=== PATIENT | male | born 1975 | race African-American/Black ===

== ENCOUNTER 2021-08-31 11:08 | Observation (INO) ==
[2021-08-31] MEDS ORDERED: HYDROmorphone INJ 0.5 MG/0.5 ML SYR IV STA (11:21)
[2021-08-31] MEDS ORDERED: ONDANSETRON INJ 2 MG/ML 2 ML VIAL IV STA (11:21)
[2021-08-31] MEDS ORDERED: SODIUM CHLORIDE 0.9% 1000ML 1,000 ML IV STA (11:21)
--- NOTE | 2021-08-31 11:27 | Emergency Department Note ---
History of Present Illness General Chief complaint: Abdominal Pain Stated complaint: RUQ ABDOM PAIN Time Seen by Provider: 08/31/21 11:16 Source: patient History of Present Illness Provider complaint: Right upper quadrant abdominal pain Onset (ago): hour(s) Location: abdomen and right Radiation: non-radiation Pain Consistency: + constant Maximum Pain Intensity: 6 Quality: + dull Exacerbated By: + eating Associated symptoms: + fever/chills and + shortness of breath; no chest pain, no cough, no headaches or no nausea/vomiting This is a 45-year-old male sent over from the [facility] for evaluation of right upper quadrant pain and fever. His symptoms started this morning after eating. He states he had similar pain about 3 days ago after eating as well. He describes as a dull pain in the right upper quadrant without radiation. It is associated with a fever of 101 today. He does feel better after he was given Tylenol at the correctional facility. He denies any cough or cold symptoms, vomiting, chest pain, diarrhea, urinary symptoms or melena. He does state that he feels short of breath when the pain is bad. Home Medications Medication Instructions Recorded Confirmed Type cholecalciferol (vitamin D3) 25 25 mcg PO QAM 08/31/21 08/31/21 History mcg (1,000 unit) capsule (Vitamin D3) hydroxyzine pamoate 25 mg capsule 25 mg PO HS 08/31/21 08/31/21 History ketorolac 30 mg/mL injection 30 mg IM BID 08/31/21 08/31/21 History solution lactulose 10 gram/15 mL oral 30 ml PO QAM 08/31/21 08/31/21 History solution meloxicam 7.5 mg tablet 7.5 mg PO BID 08/31/21 08/31/21 History venlafaxine 37.5 mg 112.5 mg PO QAM 08/31/21 08/31/21 History capsule,extended release 24 hr Allergies Allergy/AdvReac Type Severity Reaction Status Date / Time No Known Allergies Allergy Unverified 08/31/21 12:38 Past Med/Surg History Medical History Anxiety PTSD (post-traumatic stress disorder) Social History Smoking Status: Never smoker Preferred Language: Ukrainian Current Living Situation: Other Current Living Situation Comment: [facility] facility Feels Safe at Home: Yes Review of Systems See HPI for pertinent positives & negatives. and A total of 10 systems reviewed and were otherwise negative Physical Exam Vital Signs Vital Signs - 24 hr 08/31/21 11:10 08/31/21 12:34 08/31/21 14:17 Temperature 37.4 C 37.2 C Temperature Source Oral Oral Pulse Rate 88 Pulse Rate [Left] 78 80 Pulse Rhythm [Left] Regular Pulse Strength [Left] Normal Respiratory Rate 18 16 20 Respiratory Effort / Characteristics Non-Labored Spontaneous Non-Labored Respiratory Depth Normal Normal Respiratory Pattern Regular Regular Blood Pressure 137/97 Blood Pressure [Left Arm] 141/74 H 146/103 H Blood Pressure Mean 110 Blood Pressure Mean [Left Arm] 96 117 Blood Pressure Position [Left Arm] Lying Pulse Oximetry 95 98 96 Oxygen Delivery Method Room Air Room Air Room Air Sepsis Recent Fever Within 48 Hours No Sepsis New/Unexplained Change in Mental Status No Sepsis Action Taken by Nursing No Action Required 08/31/21 14:27 Temperature Temperature Source Pulse Rate 80 Pulse Rate [Left] Pulse Rhythm [Left] Pulse Strength [Left] Respiratory Rate 16 Respiratory Effort / Characteristics Respiratory Depth Respiratory Pattern Blood Pressure 138/78 Blood Pressure [Left Arm] Blood Pressure Mean Blood Pressure Mean [Left Arm] Blood Pressure Position [Left Arm] Pulse Oximetry 98 Oxygen Delivery Method Room Air Sepsis Recent Fever Within 48 Hours Sepsis New/Unexplained Change in Mental Status Sepsis Action Taken by Nursing Constitutional: Vital signs reviewed. Eyes: Pupils are equal round reactive to light. Conjunctiva are noninjected. ENT: Pharynx is clear without erythema or exudate. Mucous membranes are moist. Neck supple without meningeal signs. Respiratory: Clear to auscultation bilaterally. Breath sounds are equal bilaterally. Cardiovascular: Regular rate and rhythm. No rubs or gallops. GI: Soft, nondistended with right upper quadrant tenderness. No guarding. Positive Patterson sign. Bowel sounds are present. Musculoskeletal: No peripheral edema. No lower extremity tenderness. Integumentary: No cyanosis. or jaundice. Neurological: The patient is awake and alert. No focal deficits. Psychiatric: Normal affect. Not anxious appearing. Course Administered Medications Discontinued Medications Hydromorphone HCl (Hydromorphone Inj 0.5 Mg/0.5 Ml Syr) 0.5 mg IV NOW STA Stop: 08/31/21 11:22 Last Admin: 08/31/21 11:45 Dose: 0.5 mg Documented by: [id number] Sodium Chloride (Nss 1000ml) 1,000 mls @ 999 mls/hr IV .Q1H1M STA Stop: 08/31/21 12:21 Last Infusion: 08/31/21 12:29 Dose: 0 mls/hr Documented by: [id number] Admin: 08/31/21 11:43 Dose: 999 mls/hr Documented by: [id number] Cefoxitin Sodium (Mefoxin) 2,000 mg in 60 mls @ 100 mls/hr IV NOW STA Stop: 08/31/21 13:33 Last Infusion: 08/31/21 13:47 Dose: 0 mls/hr Documented by: [id number] Admin: 08/31/21 13:21 Dose: 100 mls/hr Documented by: [id number] Piperacillin Sod/Tazobactam (Sod 3.375 gm/ Dextrose) 115 mls @ 230 mls/hr IV NOW ONE; Protocol Stop: 08/31/21 14:41 Last Admin: 08/31/21 14:55 Dose: 230 mls/hr Documented by: [id number] Ondansetron HCl (Ondansetron Inj 2 Mg/Ml 2 Ml Vial) 4 mg IV NOW STA Stop: 08/31/21 11:22 Last Admin: 08/31/21 11:44 Dose: 4 mg Documented by: [id number] Medical Decision Making Differential Diagnosis Cholecystitis, cholangitis, lower lobe pneumonia, bacteremia, pancreatitis, COVID-19 Medical Records Attestation: I reviewed the patient's medical records. I did perform a limited focused review of portions of the patient's old chart on the electronic medical record. The patient has had no recent pertinent visits to this hospital. Home Medications Current Medication List: was personally reviewed by me Laboratory Data Attestation: I reviewed the patient's lab results. Result diagrams: 08/31/21 11:36 08/31/21 11:36 Lab Results 08/31/21 08/31/21 08/31/21 Range/Units 11:36 11:36 11:36 WBC 15.69 H (4.8-10.8) K/uL RBC 4.86 (4.7-6.1) M/uL Hgb 14.4 (14.0-18.0) g/dL Hct 42.1 (42-52) % MCV 86.6 (80-100) fL MCH 29.6 (25-34) pg MCHC 34.2 (32-36) g/dL RDW Std Deviation 43.4 (36.4-46.3) fL RDW Coeff of Sumi 13.7 (11.5-14.5) % Plt Count 285 (130-400) K/uL MPV 9.9 (7.4-10.4) fL Immature Gran % (Auto) 0.3 % Neut % (Auto) 65.0 % Lymph % (Auto) 21.4 % [place] % (Auto) 11.4 % Eos % (Auto) 1.8 % Baso % (Auto) 0.1 % Neut # (Auto) 10.20 H (1.4-6.5) K/uL Lymph # (Auto) 3.35 (1.2-3.4) K/uL [place] # (Auto) 1.79 H (0.11-0.59) K/uL Eos # (Auto) 0.28 (0-0.5) K/uL Baso # (Auto) 0.02 (0-0.2) K/uL Immature Gran # (Auto) 0.05 H (0.00-0.02) K/uL Sodium 138 (136-145) mmol/L Potassium 3.9 (3.5-5.1) mmol/L Chloride 106 (98-107) mmol/L Carbon Dioxide 23 (21-32) mmol/L Anion Gap 9 (3-11) BUN 9 (6-23) mg/dl Creatinine 0.94 (0.6-1.4) mg/dl Est Cr Clr Drug Dosing 147.3 ml/min Est GFR ( Amer) 112.2 ml/min Est GFR (Non-Af Amer) 96.8 ml/min BUN/Creatinine Ratio 9.6 L (10-20) Glucose 87 (70-99(Fasting)) mg/dl Calcium 9.1 (8.5-10.1) mg/dl Total Bilirubin 1.1 H (0.2-1.0) mg/dl AST 29 (13-39) U/L ALT 24 (7-52) U/L Alkaline Phosphatase 103 (34-104) U/L Total Protein 7.2 (6.0-8.3) gm/dl Albumin 4.2 (3.4-5.0) gm/dl Globulin 3.0 (2.5-4.0) gm/dl Albumin/Globulin Ratio 1.4 (0.9-2) Lipase 12 (11-82) U/L Urine Color Urine Appearance (Clear) Urine pH (4.5-7.5) Ur Specific [place] (1.000-1.030) Urine Protein (Negative) Urine Glucose (UA) (Negative) Urine Ketones (Negative) Urine Blood (Negative) Urine Nitrite (Negative) Urine Bilirubin (Negative) Urine Urobilinogen (Negative) Ur Leukocyte Esterase (Negative) Urine WBC (Auto) (0-5) /hpf Urine RBC (Auto) (0-4) /hpf U Hyaline Cast (Auto) (0-5) /lpf U Epithel Cells (Auto) (0-5) /lpf Urine Bacteria (Auto) (Negative) SARS-CoV-2, RNA, NAAT NEGATIVE (NEGATIVE) 08/31/21 Range/Units 14:24 WBC (4.8-10.8) K/uL RBC (4.7-6.1) M/uL Hgb (14.0-18.0) g/dL Hct (42-52) % MCV (80-100) fL MCH (25-34) pg MCHC (32-36) g/dL RDW Std Deviation (36.4-46.3) fL RDW Coeff of Sumi (11.5-14.5) % Plt Count (130-400) K/uL MPV (7.4-10.4) fL Immature Gran % (Auto) % Neut % (Auto) % Lymph % (Auto) % [place] % (Auto) % Eos % (Auto) % Baso % (Auto) % Neut # (Auto) (1.4-6.5) K/uL Lymph # (Auto) (1.2-3.4) K/uL [place] # (Auto) (0.11-0.59) K/uL Eos # (Auto) (0-0.5) K/uL Baso # (Auto) (0-0.2) K/uL Immature Gran # (Auto) (0.00-0.02) K/uL Sodium (136-145) mmol/L Potassium (3.5-5.1) mmol/L Chloride (98-107) mmol/L Carbon Dioxide (21-32) mmol/L Anion Gap (3-11) BUN (6-23) mg/dl Creatinine (0.6-1.4) mg/dl Est Cr Clr Drug Dosing ml/min Est GFR ( Amer) ml/min Est GFR (Non-Af Amer) ml/min BUN/Creatinine Ratio (10-20) Glucose (70-99(Fasting)) mg/dl Calcium (8.5-10.1) mg/dl Total Bilirubin (0.2-1.0) mg/dl AST (13-39) U/L ALT (7-52) U/L Alkaline Phosphatase (34-104) U/L Total Protein (6.0-8.3) gm/dl Albumin (3.4-5.0) gm/dl Globulin (2.5-4.0) gm/dl Albumin/Globulin Ratio (0.9-2) Lipase (11-82) U/L Urine Color [place] Urine Appearance Clear (Clear) Urine pH 5.5 (4.5-7.5) Ur Specific [place] 1.025 (1.000-1.030) Urine Protein Trace H (Negative) Urine Glucose (UA) Negative (Negative) Urine Ketones Trace H (Negative) Urine Blood Negative (Negative) Urine Nitrite Negative (Negative) Urine Bilirubin Negative (Negative) Urine Urobilinogen Negative (Negative) Ur Leukocyte Esterase Negative (Negative) Urine WBC (Auto) 1-5 (0-5) /hpf Urine RBC (Auto) 0-4 (0-4) /hpf U Hyaline Cast (Auto) 1-5 (0-5) /lpf U Epithel Cells (Auto) 5-10 H (0-5) /lpf Urine Bacteria (Auto) Negative (Negative) SARS-CoV-2, RNA, NAAT (NEGATIVE) Imaging Data Radiologist's Impression: Chest X-Ray 08/31/21 11:21 XR chest 1V portable CLINICAL HISTORY: fever eval for pna TECHNIQUE: Single frontal radiograph of the chest was obtained. Comparison: None available at the time of this dictation. FINDINGS: No lines and tubes are seen. The cardiomediastinal silhouette is normal. The lungs are clear. No evidence of pleural effusion or pneumothorax. IMPRESSION: No acute abnormality and in particular no evidence of pneumonia. ACT 112: Negative or not required by law. Electronically signed by: Samuel Rodney M.D. 08/31/2021 11:41 AM Gallbladder Ultrasound 08/31/21 11:21 US gallbladder CLINICAL HISTORY: Right upper quadrant pain and fever. Evaluate for acute cholecystitis. COMPARISON STUDY: No previous studies for comparison. FINDINGS: No hepatic lesions are identified although sensitivity is diminished by suboptimal penetration. There is no biliary ductal dilatation. Common bile duct measures 6 mm in caliber. There are numerous gallstones within the gallb ladder. Sonographic Patterson sign was elicited. Gallbladder wall is thickened, measuring 4 mm in thickness. At most, there is mild gallbladder distention. Pancreas is obscured. No right hydronephrosis. IMPRESSION: Findings suggestive of acute cholecystitis. Cholelithiasis, g allbladder wall thickening and sonographic Patterson sign. ACT 112: Negative or not required by law. Electronically signed by: Juancarlos Pardo M.D. 08/31/2021 12:38 PM MDM Narrative I did evaluate the patient as noted above. The patient is presenting with right upper quadrant pain and fever up to 101. He had similar pain 2 days ago. I am concerned about cholecystitis. IV access was established. I did treat him with IV Dilaudid and Zofran as well as normal saline. I did place an order for continuous cardiac monitoring. The monitor showed normal sinus rhythm at a rate of 75 bpm. I did order and personally reviewed the images of the patient's chest x-ray as described above. There is no evidence of pneumonia. I did order and review the patient's blood work as noted in the electronic medical record. His white blood cell count is elevated at 15.6. He is not anemic. Electrolytes are unremarkable. LFTs are unremarkable other than total bili 1.1. Lipase is 12. Covid testing is negative. I did order an ultrasound of the right upper quadrant. I did review the images myself as well as the radiology report as described above. His ultrasound is consistent with cholecystitis. I did treat him with Mefoxin 2 g IV. I did inform him of his test results. I did discuss case with general surgery. He was taken to the OR for cholecystectomy. Impression & Plan Acute cholecystitis due to biliary calculus Discharge Plan Visit Data Chief Complaint: Abdominal Pain Stated Complaint: RUQ ABDOM PAIN ED Provider: Andrew Rojo Discharge Problem: Acute cholecystitis due to biliary calculus Patient Disposition: Admitted As Inpatient Discharge Instructions Interventions: ED Discharge Assessment Last Done: 08/31/21 14:27 Forms Stand Alone Forms: [facility] Prescriptions Prescriptions: No Action venlafaxine 37.5 mg Capsule,Extended Release 24hr 112.5 mg PO QAM RF: 0 meloxicam 7.5 mg Tablet 7.5 mg PO BID RF: 0 hydroxyzine pamoate 25 mg Capsule 25 mg PO HS RF: 0 cholecalciferol (vitamin D3) [Vitamin D3] 25 mcg (1,000 unit) Capsule 25 mcg PO QAM RF: 0 lactulose 10 gram/15 mL Solution 30 ml PO QAM RF: 0 ketorolac 30 mg/mL Solution 30 mg IM BID RF: 0 Referrals Referrals: PCP,NO [Physician] -
--- NOTE | 2021-08-31 11:43 | XRay Report ---
XR chest 1V portable CLINICAL HISTORY: fever eval for pna TECHNIQUE: Single frontal radiograph of the chest was obtained. Comparison: None available at the time of this dictation. FINDINGS: No lines and tubes are seen. The cardiomediastinal silhouette is normal. The lungs are clear. No evid ence of pleural effusion or pneumothorax. IMPRESSION: No acute abnormality and in particular no evidence of pneumonia. ACT 112: Negative or not required by law. Electronically signed by: Samuel Rodney M.D. 08/31/2021 11:41 AM
[2021-08-31 11:57] LABS: Basophils # (auto) 0.02 K/uL (0-0.2); Basophils % (auto) 0.1 %; Eosinophils # (auto) 0.28 K/uL (0-0.5); Eosinophils % (auto) 1.8 %; Hematocrit (blood only) 42.1 % (42-52); Hemoglobin 14.4 g/dL (14.0-18.0); Immature Granulocytes # (auto) 0.05 K/uL (0.00-0.02); Immature Granulocytes % (auto) 0.3 %; Lymphocytes # (auto) 3.35 K/uL (1.2-3.4); Lymphocytes % (auto) 21.4 %; Mean Corpuscular Hemoglobin 29.6 pg (25-34); Mean Corpuscular Hgb Conc 34.2 g/dL (32-36); Mean Corpuscular Volume 86.6 fL (80-100); Mean Platelet Volume 9.9 fL (7.4-10.4); Monocytes # (auto) 1.79 K/uL (0.11-0.59); Monocytes % (auto) 11.4 %; Platelet Count 285 K/uL (130-400); RDW Coefficient of Variation 13.7 % (11.5-14.5); RDW Standard Deviation 43.4 fL (36.4-46.3); Red Blood Count 4.86 M/uL (4.7-6.1); White Blood Count 15.69 K/uL (4.8-10.8)
[2021-08-31 12:17] LABS: Albumin Globulin Ratio 1.4 (0.9-2); Albumin Level 4.2 gm/dl (3.4-5.0); BUN Creatinine Ratio 9.6 (10-20); Bilirubin,Total 1.1 mg/dl (0.2-1.0); Calcium 9.1 mg/dl (8.5-10.1); Creatinine Clr Calc Pharmacy 147.3 ml/min; Est GFR (African American) 112.2 ml/min; Est GFR (Non-African American) 96.8 ml/min; Potassium 3.9 mmol/L (3.5-5.1); Total Protein 7.2 gm/dl (6.0-8.3)
--- NOTE | 2021-08-31 12:40 | Ultrasound Report ---
US gallbladder CLINICAL HISTORY: Right upper quadrant pain and fever. Evaluate for acute cholecystitis. COMPARISON STUDY: No previous studies for comparison. FINDINGS: No hepatic lesions are identified although sensitivity is diminished by suboptimal penetrat ion. There is no biliary ductal dilatation. Common bile duct measures 6 mm in caliber. There are nume tanja gallstones within the gallbladder. Sonographic Patterson sign was elicited. Gallbladder wall is thi ckened, measuring 4 mm in thickness. At most, there is mild gallbladder distention. Pancreas is obscu red. No right hydronephrosis. IMPRESSION: Findings suggestive of acute cholecystitis. Cholelithiasis, gallbladder wall thickening and sonographic Patterson sign. ACT 112: Negative or not required by law. Electronically signed by: Juancarlos Pardo M.D. 08/31/2021 12:38 PM
[2021-08-31] MEDS ORDERED: cefOXitin 2,000 MG/60 ML BAG IV STA (12:58)
--- NOTE | 2021-08-31 14:06 | Surgery Consultation ---
Date of Consultation August 31, 2021 Assessment & Plan (1) Acute cholecystitis due to biliary calculus: pt is a 45 year-old male who presents with 3 days history RUQ pain, IMP: acute cholecystitis, cholelithiasis, plan,,I recommend to do laparoscopic cholecystectomy, possible open or cholang iogram, D/W benefits, risks and alternatives of the surgery, the risks- infection, bleeding, injury other organs, may need ERCP, incisional hernia, DVT, [place], , pt understood, he agrees with the surgery, he signed informed consent, I answered all questions, pre-op antibiotic, History of Present Illness Reason for Consultation: acute cholecystitis Requesting Physician: Andrew Jones MD History of Present Illness History of Present Illness General Chief complaint: Abdominal Pain Stated complaint: RUQ ABDOM PAIN Time Seen by Provider: 08/31/21 11:16 Source: patient History of Present Illness Provider complaint: Right upper quadrant abdominal pain Onset (ago): hour(s) Location: abdomen and right Radiation: non-radiation Pain Consistency: + constant Maximum Pain Intensity: 6 Quality: + dull Exacerbated By: + eating Associated symptoms: + fever/chills and + shortness of breath; no chest pain, no cough, no headaches or no nausea/vomiting This is a 45-year-old male sent over from the [facility] for evaluation of right upper quadrant pain and fever. His symptoms started this morning after eating. He states he had similar pain about 3 days ago after eating as well. He describes as a dull pain in the right upper quadrant without radiation. It is associated with a fever of 101 today. He does feel better after he was given Tylenol at the correctional facility. He denies any cough or cold symptoms, vomiting, chest pain, diarrhea, urinary symptoms or melena. He does state that he feels short of breath when the pain is bad. I ( Eligio Patterson MD) got a call for consult acute cholecystitis with cholelithiasis, I reviewed pt's H/P, labs, U/S study with pt, pt is still have RUQ pain, Home Medications Medication Instructions Recorded Confirmed Type cholecalciferol (vitamin D3) 25 25 mcg PO QAM 08/31/21 08/31/21 History mcg (1,000 unit) capsule (Vitamin D3) hydroxyzine pamoate 25 mg capsule 25 mg PO HS 08/31/21 History ketorolac 30 mg/mL injection 30 mg IM BID 08/31/21 08/31/21 Hi story solution lactulose 10 gram/15 mL oral 30 ml PO QAM 08/31/21 08/31/21 Hi story solution meloxicam 7.5 mg tablet 7.5 mg PO BID 08/31/21 08/31/21 History venlafaxine 37.5 mg 112.5 mg PO QAM 08/31/21 08/31/21 History capsule,extended release 24 hr Allergies Allergy/AdvReac Type Severity Reaction Status Date / Time No Known Allergies Allergy Unverified 08/31/21 12:38 Past Med/Surg History Medical History Anxiety PTSD (post-traumatic stress disorder) Social History Smoking Status: Never smoker Preferred Language: Syriac Current Living Situation: Other Current Living Situation Comment: [facility] facility Feels Safe at Home: Yes Review of Systems See HPI for pertinent positives & negatives. and A total of 10 systems reviewed and were otherwise negative Allergies Allergy/AdvReac Type Severity Reaction Status Date / Time No Known Allergies Allergy Unverified 08/31/21 12:38 Home Medications Medication Instructions Recorded Confirmed Type cholecalciferol (vitamin D3) 25 25 mcg PO QAM 08/31/21 08/31/21 History mcg (1,000 unit) capsule (Vitamin D3) hydroxyzine pamoate 25 mg capsule 25 mg PO HS 08/31/21 08/31/21 History ketorolac 30 mg/mL injection 30 mg IM BID 08/31/21 08/31/21 History solution lactulose 10 gram/15 mL oral 30 ml PO QAM 08/31/21 08/31/21 History solution meloxicam 7.5 mg tablet 7.5 mg PO BID 08/31/21 08/31/21 History venlafaxine 37.5 mg 112.5 mg PO QAM 08/31/21 08/31/21 History capsule,extended release 24 hr Patient History Medical History Anxiety PTSD (post-traumatic stress disorder) Social History Smoking Status: Never smoker Preferred Language: Syriac Current Living Situation: Other Current Living Situation Comment: [facility] facility Feels Safe at Home: Yes Physical Exam Constitutional: WD/WN, vitals as above obesity Eyes: PERRL, conjunctivae normal, anicteric sclerae Neck: trachea midline, no thyromegaly Respiratory: normal respiratory effort, lungs clear to auscultation Cardiovascular: RRR, no murmur, no edema Gastrointestinal (Abdomen): soft, tenderness at RUQ, no rebound pain, no distend, BS + Musculoskeletal: no cyanosis or clubbing, extremities motor strength 5/5 Neurologic: patellar DTR's 2+ bilat, sensation intact Psychiatric: A+Ox3, euthymic affect Results & Data ([facility]) Vital Signs (Past 12 Hours) Vital Signs Temp Pulse Pulse Resp BP BP Pulse Ox 08/31/21 12:34 78 16 141/74 H 98 08/31/21 11:10 37.4 C 88 18 137/97 95 Laboratory Results Abnormal lab results 08/31/21 08/31/21 Range/Units 11:36 11:36 WBC 15.69 H (4.8-10.8) K/uL Neut # (Auto) 10.20 H (1.4-6.5) K/uL [facility] # (Auto) 1.79 H (0.11-0.59) K/uL Immature Gran # (Auto) 0.05 H (0.00-0.02) K/uL BUN/Creatinine Ratio 9.6 L (10-20) Total Bilirubin 1.1 H (0.2-1.0) mg/dl Diagnostic Findings US gallbladder CLINICAL HISTORY: Right upper quadrant pain and fever. Evaluate for acute cholecystitis. COMPARISON STUDY: No previous studies for comparison. FINDINGS: No hepatic lesions are identified although sensitivity is diminished by suboptimal penetration. There is no biliary ductal dilatation. Common bile duct measures 6 mm in caliber. There are numerous gallstones within the gallbladder. Sonographic Patterson sign was elicited. Gallbladder wall is thickened, measuring 4 mm in thickness. At most, there is mild gallbladder distention. Pancreas is obscured. No right hydronephrosis. IMPRESSION: Findings suggestive of acute cholecystitis. Cholelithiasis, gallbladder wall thickening and sonographic Patterson sign.
[2021-08-31] MEDS ORDERED: PIPERACILL/TAZOBAC CONSULT ACTIVE PRN ×2 (14:12→18:34)
[2021-08-31] MEDS ORDERED: PIPERACILLIN/TAZOBACTAM 3.375 GM in DEXTROSE 5% 100 ML IV ONE (14:12)
--- NOTE | 2021-08-31 14:12 | History & Physical Bridge Note ---
Date of Service August 31, 2021 History & Physical Bridge Note I have examined the patient, reviewed the History & Physical and in the interval since the performance of the History & Physical I have noted the following changes of clinical significance: no changes noted
[2021-08-31] MEDS ORDERED: MIDAZOLAM HCL 1 MG/ML 2ML VIAL ONE (14:22)
[2021-08-31] MEDS ORDERED: BUPIVACAINE 0.5 % 5 MG/1 ML MPF 30ML VIAL ONE (14:30)
[2021-08-31] MEDS ORDERED: BACITRACIN OINT 15 GM TUBE ONE (14:30)
[2021-08-31] MEDS ORDERED: LIDOCAINE 1% LOCAL 20 ML VIAL ONE (14:30)
[2021-08-31 14:40] LABS: Appearance Urine Clear (Clear); Bacteria Urine Automated Negative (Negative); Bilirubin Urine Negative (Negative); Blood Urine Negative (Negative); Color Urine Orange; Glucose Urine UA Negative (Negative); Ketones Urine Trace (Negative); Leukocyte Esterase Urine Negative (Negative); Nitrite Urine Negative (Negative); Protein Urine Trace (Negative); RBC Urine Automated 0-4 /hpf (0-4); Specific Gravity Urine 1.025 (1.000-1.030); Urobilinogen Urine Negative (Negative); pH Urine 5.5 (4.5-7.5)
[2021-08-31] MEDS ORDERED: LIDOCAINE 2% 2 ML VIAL/AMP(20MG/ML) INFIL ONE (14:47)
[2021-08-31] MEDS ORDERED: ROCURONIUM BROMIDE 10 MG/ML 5 ML VIAL IV ONE ×3 (14:47→16:10)
[2021-08-31] MEDS ORDERED: SUCCINYLCHOLINE CHLORIDE 20 MG/ML 10 ML VIAL IV ONE (14:47)
[2021-08-31] MEDS ORDERED: fentaNYL citrate 100 MCG/2 ML VIAL ONE (14:47)
[2021-08-31] MEDS ORDERED: PROPOFOL IV EMULSION 10 MG/ML 20 ML VIAL IV ONE (14:47)
[2021-08-31] MEDS ORDERED: ONDANSETRON INJ 2 MG/ML 2 ML VIAL IV PRN (14:48)
[2021-08-31] MEDS ORDERED: ePHEDrine sulfate 50 MG/ML AMP IV PRN (14:48)
[2021-08-31] MEDS ORDERED: fentaNYL citrate 100 MCG/2 ML VIAL IV PRN (14:48)
[2021-08-31] MEDS ORDERED: HYDROmorphone INJ 2 MG/ML SYR/VIAL IV PRN (14:48)
[2021-08-31] MEDS ORDERED: ATROPINE SULFATE 0.1 MG/ML 10ML SYR IV PRN (14:48)
--- NOTE | 2021-08-31 14:48 | Anesthesiology Consultation ---
Date of Service August 31, 2021 Assessment & Plan ASA ASA3 Proposed Anesthesia Anesthesia Type: General Risk / Benefits Reviewed With: PT / POA / Parent / Guardian, Accepts Plan and Informed Consent Obtained History Surgery Operation Date: 08/31/21 08:20 Proposed Procedures p Laparoscopic Cholecystectomy - Eligio Patterson MD Height/Weight Height: 5 ft 11 in Weight: 152.1 kg Allergies Allergy/AdvReac Type Severity Reaction Status Date / Time No Known Allergies Allergy Unverified 08/31/21 12:38 Medications Home Medications Medication Instructions Recorded Confirmed Last Taken cholecalciferol (vitamin D3) 25 25 mcg PO QAM 08/31/21 08/31/21 08/26/21 07:00 mcg (1,000 unit) capsule (Vitamin D3) hydroxyzine pamoate 25 mg capsule 25 mg PO HS 08/31/21 08/31/21 08/30/21 ketorolac 30 mg/mL injection 30 mg IM BID 08/31/21 08/31/21 08/30/21 06:30 solution lactulose 10 gram/15 mL oral 30 ml PO QAM 08/31/21 08/31/21 08/30/21 06:30 solution meloxicam 7.5 mg tablet 7.5 mg PO BID 08/31/21 08/31/21 Unknown venlafaxine 37.5 mg 112.5 mg PO QAM 08/31/21 08/31/21 08/31/21 07:00 capsule,extended release 24 hr NPO Date Last Intake of Fluids: 08/31/21 Time Last Intake of Fluids: 07:00 Date Last Intake of Solids: 08/31/21 Time Last Intake of Solids: 07:00 Past Medical History Medical History Anxiety PTSD (post-traumatic stress disorder) Exercise / Class Metabolic Activity II 4-5 Yardwork/Stairs/Walk up hill Past Anesthesia History No Hx of Anesthesia Complications and No Family Hx of Anesthesia Complications History of PONV No Hx of PONV and No Hx of Motion Sickness Social History Smoking Status: Never smoker Review of Systems denies fever/cough/ colds/ chest pain/ SOB/ SHELLY denies SHELLY Physical Exam Vital Signs Last Vital Signs Temp 37.2 C 08/31/21 14:17 Pulse 80 08/31/21 14:27 Resp 16 08/31/21 14:27 BP 138/78 08/31/21 14:27 Pulse Ox 98 08/31/21 14:27 ENMT Mouth: no TMJ abnormality and no dentition abnormality Thyromental Distance: > or= 3.5 Finger Breadths Mallampati Class: II Neck neck extension not limited Respiratory normal respiratory effort; no respiratory distress Auscultation: lungs clear to auscultation bilaterally Cardiovascular Rate/Rhythm: regular rate and regular rhythm Neurologic moves all extremities Psychiatric Orientation: alert and oriented x 3 Testing Laboratory Results 08/31/21 11:36 08/31/21 11:36 Urine Color [place] 08/31/21 14:24 Urine Appearance Clear (Clear) 08/31/21 14:24 Urine pH 5.5 (4.5-7.5) 08/31/21 14:24 Ur Specific [place] 1.025 (1.000-1.030) 08/31/21 14:24 Urine Protein Trace (Negative) H 08/31/21 14:24 Urine Glucose (UA) Negative (Negative) 08/31/21 14:24 Urine Ketones Trace (Negative) H 08/31/21 14:24 Urine Nitrite Negative (Negative) 08/31/21 14:24 Ur Leukocyte Esterase Negative (Negative) 08/31/21 14:24 Urine WBC (Auto) 1-5 /hpf (0-5) 08/31/21 14:24 Urine RBC (Auto) 0-4 /hpf (0-4) 08/31/21 14:24 U Hyaline Cast (Auto) 1-5 /lpf (0-5) 08/31/21 14:24 U Epithel Cells (Auto) 5-10 /lpf (0-5) H 08/31/21 14:24 Urine Bacteria (Auto) Negative (Negative) 08/31/21 14:24
[2021-08-31] MEDS ORDERED: DEXAMETHASONE SOD INJ 4 MG/ML VIAL ONE (15:34)
[2021-08-31] MEDS ORDERED: ONDANSETRON INJ 2 MG/ML 2 ML VIAL ONE (15:36)
[2021-08-31] MEDS ORDERED: GLYCOPYRROLATE 0.2 MG/ML VIAL ONE (15:52)
[2021-08-31] MEDS ORDERED: NEOSTIGMINE METHYLSULFATE 1 MG/ML 10ML VIAL ONE (15:52)
[2021-08-31] MEDS ORDERED: KETOROLAC 30 MG/ML VIAL ONE (16:25)
--- NOTE | 2021-08-31 16:43 | Post Operative Brief Note ---
Immediate Post Op Note v1 Date of Surgery August 31, 2021 Pre & Post Diagnosis Operation Date: 08/31/21 08:20 Pre-Op Diagnosis: Acute cholecystitis due to biliary calculus Post-Op Diagnosis: Acute cholecystitis due to biliary calculus I identified the patient and participated in the time-out.: Yes Procedure Operation Date: 08/31/21 08:20 Actual Procedures p Laparoscopic Cholecystectomy(Not Applicable) - Eligio Patterson MD Surgeon Eligio Patterson MD Electrical Engineering Drafting Officer BUTSER Bella Estimated Blood Loss 20 Findings Consistent with Post-Op Diagnosis significant inflammation on gallbladder wall, Fluids 1000ml Specimens gallbladder Anesthesia Type General Complications none Disposition Accompanied Patient To Recovery: Yes
--- NOTE | 2021-08-31 17:37 | Operative Report (OR) ---
DATE OF PROCEDURE: 08/31/2021. PREOPERATIVE DIAGNOSES: Acute cholecystitis, cholelithiasis. POSTOPERATIVE DIAGNOSES: Acute cholecystitis, cholelithiasis. OPERATION: Laparoscopic cholecystectomy. SURGEON: Eligio Patterson MD. HR CLERK: Sangeeta Vizcaino PA-C. ANESTHESIA: General. ESTIMATED BLOOD LOSS: About 20 mL. FINDINGS: Significant inflammation on the gallbladder wall, acute cholecystitis with cholelithiasis. COMPLICATIONS: None. INDICATIONS FOR THE PROCEDURE: This is a 45-year-old gentleman who presented to ED with a 3-day hist ory of right lower quadrant pain. The patient had ultrasound diagnosis of acute cholecystitis with c holelithiasis. I recommended to do laparoscopic cholecystectomy, possible open, possible cholangiogr am. I did talk to the patient about the benefits, risks, and alternate procedure. I indicated the r isks may include, but not limited to, such as bleeding, infection, abscess, injury to other organs, m ay need ERCP, DVT, even , myocardial infarction. The patient understands. He signed informed c onsent and I answered all questions. DETAILS OF PROCEDURE: After we identified the patient and verified the procedure, we brought the pat ient to the OR, put the patient in the supine position on the OR table. The patient received SCD on bilateral legs to prevent DVT. Also, patient received 3.375 grams Zosyn IV for prophylactic antibiot ic. The patient received general anesthesia without difficulty. The abdomen was prepped and draped in routine sterile fashion. After timeout, I injected the local anesthesia by using 1% lidocaine mix ed with 0.5% Marcaine just above the umbilicus, then I made a small incision just above the umbilicus , opened fascia, opened peritoneum. Under direct vision, put a Noni trocar in, connected to CO2 to create pneumoperitoneum, flow rate at 6 liters per minute, pressure not more than 14 mmHg. Once we got a nice pneumoperitoneum, we put a camera in, looked around the abdomen, it shows normal f inding on the liver; however, the gallbladder had significant inflammation and distention with signif icant inflammation on the gallbladder wall, confirmed diagnosis of acute cholecystitis. Once confirm ed the diagnosis, we put another two 5 mm trocars on the right upper quadrant and one 11 trocar on th e epigastric area. Once all trocars in, and we used a large needle to decompress the gallbladder fir st. Then, we used the grasper to hold the base of gallbladder, put in the direction to the diaphragm , another grasper to hold the pouch of gallbladder, put the latter to expunge the triangle of Calot. The cystic duct was identified and mobilized. I put two 10 mm metal clips on the proximal cystic du ct, one on the distal cystic duct, then used a scissor for transection of cystic duct; rechecked, no bile leak. The cystic artery was identified and mobilized. I put two 10 mm metal clips on the proxi mal cystic artery, 1 on the distal cystic artery, then used a scissor for transection of cystic arter y, rechecked, no active bleeding. Then, we used the Bovie to take down gallbladder from liver bed. Then, we removed gallbladder through the catch bag. Then, we reinserted the Noni trocar in, connected to CO2 to create pneumoperitoneum, again looked a round the abdomen, no active bleeding, no bile leak from liver bed. Then, we removed all trocars und er direct vision. No active bleeding from the trocar site. Pneumoperitoneum was released, then I cl osed the umbilical incision fascial layer by using 0 Vicryl [id number] x2, closed subcutaneous l dony by using 2-0 Vicryl interruptedly, closed skin by using 4-0 Vicryl continuous running, closed th e epigastric incision fascial layer by using 0 Vicryl [id number] x2, closed subcutaneous layer b y using 2-0 Vicryl interruptedly, closed skin by using 4-0 Vicryl interruptedly, closed another two 5 mm trocar site of skin only by using 4-0 Vicryl. Then, we put the dressing on. The patient tolerat ed the procedure well. All instrument, needle and sponge counts were correct x2 at the end of the ca se. The patient was transferred to recovery room in stable condition. The specimen was sent to path ology. After the procedure, I did talk to the patient about the OR finding and the procedure we did, he understands. The glass ribbon machine operator assistant, Sangeeta, was necessary for this procedure. Her role was to hold the camera, ret raction and exposure. Job ID: [id number]
--- NOTE | 2021-08-31 17:42 | Anesthesiology Progress Note ---
Date of Service August 31, 2021 Anesthesia Post Procedure Vital Signs Vital Signs: Temp Pulse Pulse Pulse Resp BP BP 08/31/21 17:30 83 16 146/87 H 08/31/21 17:20 87 16 128/91 08/31/21 17:10 96 H 15 148/106 H 08/31/21 17:00 36.5 C 98 H 18 177/107 H 08/31/21 14:27 80 16 138/78 08/31/21 14:17 37.2 C 80 20 146/103 H 08/31/21 12:34 78 16 141/74 H 08/31/21 11:10 37.4 C 88 18 137/97 Pulse Ox 08/31/21 17:30 92 08/31/21 17:20 98 08/31/21 17:10 98 08/31/21 17:00 97 08/31/21 14:27 98 08/31/21 14:17 96 08/31/21 12:34 98 08/31/21 11:10 95 Pain Intensity Right Upper Abdomen: Pain Intensity: 5 Transfer of Care Handoff Completed per policy Notes Mental Status: alert / awake / arousable Patient Amnestic to Procedure: Yes Nausea / Vomiting: adequately controlled Pain: adequately controlled Airway Patency, RR, SpO2: stable & adequate BP & HR: stable & adequate Hydration State: stable & adequate Anesthetic Complications: no major complications apparent
[2021-08-31] MEDS ORDERED: HYDROmorphone INJ 0.5 MG/0.5 ML SYR IV PRN (18:34)
[2021-08-31] MEDS ORDERED: KETOROLAC 30 MG/ML VIAL IV PRN (19:26)
[2021-08-31] MEDS: PIPERACILLIN/TAZOBACTAM 4.5 GM in DEXTROSE 5% 100 ML IV SCH (20:10)
[2021-08-31] MEDS: LACTATED RINGER'S 1,000 ML IV SCH (20:18)
[2021-08-31] MEDS: MELOXICAM 7.5 MG TAB PO SCH (20:21)
[2021-08-31] MEDS ORDERED: hydrOXYzine HCl 25 MG TAB PO SCH (21:00)
[2021-09-01] MEDS: oxyCODONE/ACETAMINOPHEN 5mg/325mg TAB PO PRN ×2 (05:05→15:06)
[2021-09-01] MEDS: PIPERACILLIN/TAZOBACTAM 4.5 GM in DEXTROSE 5% 100 ML IV SCH ×2 (05:07→13:23)
[2021-09-01] MEDS ORDERED: Nursing to Pharmacy Communication SCH (05:30)
[2021-09-01 06:16] LABS: Basophils # (auto) 0.01 K/uL (0-0.2); Basophils % (auto) 0.1 %; Eosinophils # (auto) 0.01 K/uL (0-0.5); Eosinophils % (auto) 0.1 %; Hematocrit (blood only) 38.5 % (42-52); Hemoglobin 13.1 g/dL (14.0-18.0); Immature Granulocytes # (auto) 0.04 K/uL (0.00-0.02); Immature Granulocytes % (auto) 0.3 %; Lymphocytes # (auto) 1.57 K/uL (1.2-3.4); Lymphocytes % (auto) 12.1 %; Mean Corpuscular Hemoglobin 30.3 pg (25-34); Mean Corpuscular Volume 88.9 fL (80-100); Mean Platelet Volume 10.4 fL (7.4-10.4); Monocytes # (auto) 0.93 K/uL (0.11-0.59); Monocytes % (auto) 7.2 %; Neutrophils # (auto) 10.38 K/uL (1.4-6.5); Neutrophils % (auto) 80.2 %; Platelet Count 252 K/uL (130-400); RDW Coefficient of Variation 13.6 % (11.5-14.5); RDW Standard Deviation 44.5 fL (36.4-46.3); Red Blood Count 4.33 M/uL (4.7-6.1); White Blood Count 12.94 K/uL (4.8-10.8)
[2021-09-01 06:29] LABS: Albumin Globulin Ratio 1.3 (0.9-2); Albumin Level 3.8 gm/dl (3.4-5.0); BUN Creatinine Ratio 10.1 (10-20); Bilirubin,Total 0.7 mg/dl (0.2-1.0); Calcium 8.7 mg/dl (8.5-10.1); Creatinine Clr Calc Pharmacy 139.8 ml/min; Est GFR (African American) 105.4 ml/min; Globulin 2.9 gm/dl (2.5-4.0); Total Protein 6.7 gm/dl (6.0-8.3)
[2021-09-01] MEDS: LACTATED RINGER'S 1,000 ML IV SCH (07:07)
[2021-09-01] MEDS ORDERED: ACETAMINOPHEN 325 MG TAB PO PRN (08:47)
[2021-09-01] MEDS: MELOXICAM 7.5 MG TAB PO SCH (08:55)
[2021-09-01] MEDS ORDERED: CHOLECALCIFEROL 1,000 UNITS 25 MCG TAB PO SCH (09:00)
[2021-09-01] MEDS ORDERED: LACTULOSE SYRUP 30 GM/45 ML UDP PO SCH (09:00)
[2021-09-01] MEDS ORDERED: VENLAFAXINE HCL XR 37.5 MG CAPXR PO SCH (09:00)
[2021-09-01] MEDS ORDERED: IBUPROFEN 600 MG TAB PO PRN (10:00)
--- NOTE | 2021-09-01 10:01 | Discharge Summary ---
Date of Service September 01, 2021 Admission HPI Per Admitting Provider This is a 45-year-old male sent over from the [facility] for evaluation of right upper quadrant pain and fever. His symptoms started this morning after eating. He states he had similar pain about 3 days ago after eating as well. He describes as a dull pain in the right upper quadrant without radiation. It is associated with a fever of 101 today. He does feel better after he was given Tylenol at the correctional facility. He denies any cough or cold symptoms, vomiting, chest pain, diarrhea, urinary symptoms or melena. He does state that he feels short of breath when the pain is bad. Principal Diagnosis Acute cholecystitis Discharge Exam Constitutional WD/WN, vitals as above + obese; no acute distress and not ill appearing Neck normal visual inspection and trachea midline Respiratory normal respiratory effort; no respiratory distress, no labored breathing and no retractions Gastrointestinal (Abdomen) Inspection/Auscultation: abdomen normal to inspection and normal bowel sounds; abdomen not distended Percussion/Palpation: + abdomen tender (at incision sites appropriate postop) and abdomen soft; no guarding and abdomen not rigid Skin no rashes, warm and dry Psychiatric A+Ox3, euthymic affect Discharge Data Allergies Allergy/AdvReac Type Severity Reaction Status Date / Time No Known Allergies Allergy Unverified 08/31/21 12:38 Consultations 08/31/21 13:51 ED Decision to Admit Stat Procedures Performed Operation Date: 08/31/21 08:20 Actual Procedures p Laparoscopic Cholecystectomy(Not Applicable) - Eligio Patterson MD Ordered Studies 08/31/21 11:21 US gallbladder Stat Hospital Course (1) Acute cholecystitis due to biliary calculus: Patient was taken to operating room for laparoscopic cholecystectomy by Dr. Patterson. Patient found to have acute cholecystitis. Patient tolerated procedure well and was transferred to recovery room then to medical/surgical floor for postoperative care. His diet was advanced to clear liquids. IV Zosyn continued. IV fluids, po Percocet as needed for pain and SCDs and incentive spirometry. Patient see on POD # 1, afebrile, vss. Postop pain minimal and controlled. No n/v. Tolerated clear liquids. Diet was advanced to regular diet. Encouraged OOB to chair and ambulation. Patient tolerated regular diet for lunch. Pain minimal more of soreness at incisions. Patient was concerned about constipation. Gave COlace 100 mg tab x 1. Patient was discharged back to shelter in stable condition. Total Time Total Time Spent Total Time Spent (In Minutes): 1 hour Total Time Includes: Examination of the Patient, Discharge Planning, Medication Reconciliation and Communication With Other Providers Discharge Plan Discharge Items [facility] Disposition: [facility] Reason For Visit: VOMITING, LOWER ABDOMINAL PAIN Discharge Diagnosis: Acute Cholecystitis Activity: Per Instructions section Non-emergency contact: Surgeon Call non-emergency contact if: your pain is not controlled, your pain is worsening, your pain is concerning for you, you have a fever, your temperature is above 101, your wound has increased redness, your wound has increased drainage and your wound pain has increased Follow-up/Referrals: Eligio Patterson MD [Physician] - (follow-up in 2 weeks) [facility] [Physician] - Diet: Regular Addtl Attending Provider Instructions: Post-Surgical ~Discharge Instructions Activity Recommendations: - lifting limitation: (20 pounds for 4 weeks), - exercise/sex/sports limit: (nonstrenuous for 2 weeks), - driving or machine use limit: (none for 1 week), - Shower/bathe limit: (october shower beginning Saturday) Diet: - Resume previous diet SPECIAL CARE INSTRUCTIONS: - May shower on Saturday. Let water run over area and pat dry. - Leave steri strips on for one week and then remove. - Call the surgeon's office with any questions or concerns - - (ex. temperature higher than 101 degrees F, excessive bleeding or pain). MEDICATIONS: - Resume previous medications unless instructed otherwise by your surgeon. - May take extra strength Tylenol and Ibuprofen as needed for pain - 650 mg Tylenol every 6 hours as needed - Ibuprofen 600 mg every 6 hours as needed( take with food) - Recommend taking stool softener BID (Colace) given chronic constipation to p revent straining FOLLOW UP VISIT: - If not already scheduled, please call the office to schedule a two week follow-up appointment. Office number Pending Studies at Discharge: Yes (gallbladder pathology) Stand-Alone Forms: My [facility] Skilled Items Patient informed of condition?: Yes Discharge Level of Care: Other Communicable Disease: No Discharge Prognosis: Stable Lines: None Urinary Catheter: No Medications and DC Order Prescriptions: Continued venlafaxine 37.5 mg Capsule,Extended Release 24hr 112.5 mg PO QAM RF: 0 meloxicam 7.5 mg Tablet 7.5 mg PO BID RF: 0 hydroxyzine pamoate 25 mg Capsule 25 mg PO HS RF: 0 cholecalciferol (vitamin D3) [Vitamin D3] 25 mcg (1,000 unit) Capsule 25 mcg PO QAM RF: 0 lactulose 10 gram/15 mL Solution 30 ml PO QAM RF: 0 ketorolac 30 mg/mL Solution 30 mg IM BID RF: 0 Discharge Orders: Discharge Order (Routine); Ordered 09/01/21 Ordered By: Sangeeta Vizcaino Admission Data Admit Date/Time: 08/31/21 16:47 Attending Provider: Eligio Patterson Admit Provider: Eligio Patterson Primary Care Provider: Shailesh REIS Other Providers: Eligio Patterson
[2021-09-01] MEDS ORDERED: DOCUSATE SODIUM 100 MG CAP PO STA (14:03)
== END 2021-09-01 17:54 | DRG 418 ==
LOC: ED 11:08 → 3W 14:30 → OR 14:30 → 3W 16:47 → INTOOBSV 16:47